=== PATIENT | male | born 1970 ===

== ENCOUNTER 2021-11-20 12:28 | Inpatient (IN) | payer MEDICARE ==
[2021-11-20 15:13] LABS: Basophils % (Auto) 0.6 % (0.0-1.8); Eosinophils % (Auto) 0.4 % (0.0-4.3); Hematocrit 34.9 % (35.5-45.6); Hemoglobin 12.3 gm/dl (11.8-15.2); Lymphocytes # (Auto) 1.2 K/mm3 (1.2-5.4); Lymphocytes % (Auto) 13.7 % (13.4-35.0); Mean Corpuscular HGB Conc 35 % (32-34); Mean Corpuscular Volume 93 fl (84-94); Monocytes # (Auto) 0.8 K/mm3 (0.0-0.8); Monocytes % (Auto) 8.9 % (0.0-7.3); Platelet Count 169 K/mm3 (140-440); Red Blood Count 3.77 M/mm3 (3.65-5.03); Red Cell Distribution Width 13.5 % (13.2-15.2)
[2021-11-20 15:29] LABS: Albumin 3.9 g/dL (3.9-5); Calcium 9.5 mg/dL (8.4-10.2)
[2021-11-21] MEDS ORDERED: SODIUM CHLORIDE 0.9% 1000 ML 1,000 ML IV ONE (01:28)
[2021-11-21] MEDS ORDERED: MAGNESIUM SULFATE 2 GM/50 ML BAG IV ONE (01:28)
--- NOTE | 2021-11-21 02:10 | Emergency Department Report ---
ED General Adult HPI - General Chief complaint: Hyperglycemia Stated complaint: ALCOHOL WITHDRAWLS/DIABETIC SYM Time Seen by Provider: 11/21/21 01:27 Source: patient Mode of arrival: Ambulatory Limitations: Language Barrier - History of Present Illness Initial comments: Patient is a 51-year-old Italian-speaking male with history of diabetes sent for evaluation by his PCP after outside labs were reportedly abnormal. His only complaint is nausea and diarrhea. He denies any chest pain or shortness of breath. Severity scale (0 -10): 0 - Related Data Allergies Allergy/AdvReac Type Severity Reaction Status Date / Time No Known Allergies Allergy Verified 11/20/21 14:04 ED Review of Systems ROS: Stated complaint: ALCOHOL WITHDRAWLS/DIABETIC SYM Other details as noted in HPI Constitutional: denies: chills, fever Respiratory: denies: cough, shortness of breath, wheezing Cardiovascular: denies: chest pain, palpitations Gastrointestinal: nausea, diarrhea Musculoskeletal: denies: back pain, joint swelling, arthralgia Skin: denies: rash, lesions Neurological: denies: headache, weakness, paresthesias Psychiatric: denies: anxiety, depression ED Past Medical Hx - Social History Smoking Status: Never Smoker ED Physical Exam - General Limitations: Language Barrier General appearance: alert, in no apparent distress - Head Head exam: Present: atraumatic, normocephalic - Respiratory Respiratory exam: Present: normal lung sounds bilaterally. Absent: respiratory distress - Cardiovascular Cardiovascular Exam: Present: regular rate, normal rhythm, normal heart sounds - GI/Abdominal GI/Abdominal exam: Present: soft. Absent: distended, tenderness - Rectal Rectal exam: Present: deferred - Extremities Exam Extremities exam: Present: normal inspection - Neurological Exam Neurological exam: Present: alert, oriented X3 - Psychiatric Psychiatric exam: Present: normal affect, normal mood - Skin Skin exam: Present: warm, dry, intact, normal color ED Course Vital Signs 11/20/21 11/21/21 11/21/21 13:48 01:37 01:45 Temperature 97.9 F Pulse Rate 74 72 72 Respiratory 18 14 15 Rate Blood Pressure 103/53 Blood Pressure 112/76 [Right] O2 Sat by Pulse 98 99 99 Oximetry 11/21/21 01:55 Temperature Pulse Rate Respiratory Rate Blood Pressure Blood Pressure [Right] O2 Sat by Pulse 100 Oximetry ED Medical Decision Making - Lab Data Result diagrams: 11/20/21 14:16 11/20/21 14:16 - Medical Decision Making Laboratory evaluation reveals serum glucose of 327. Creatinine 3.0, potassium 3.0, magnesium 0.9. Patient given IV fluids along with IV KCl and magnesium. I discussed results with patient. He denies history of kidney disease. Will admit to hospitalist for management of acute renal failure and electrolyte abnormalities. Critical care attestation.: If time is entered above; I have spent that time in minutes in the direct care of this critically ill patient, excluding procedure time. ED Disposition Clinical Impression: Acute renal failure, Hypokalemia, Hypomagnesemia, Hyperglycemia due to type 2 diabetes mellitus Disposition: ADMITTED INPATIENT Is pt being admited?: Yes Condition: Stable Instructions: Diabetes Mellitus Type 2 in Adults (ED)
--- NOTE | 2021-11-21 02:11 | XRay Report ---
CHEST 1 VIEW 11/21/2021 1:39 AM INDICATION / CLINICAL INFORMATION: Shortness of breath. COMPARISON: None available. FINDINGS: SUPPORT DEVICES: None. HEART / MEDIASTINUM: No significant abnormality. LUNGS / PLEURA: No significant pulmonary or pleural abnormality. No pneumothorax. ADDITIONAL FINDINGS: No significant additional findings. IMPRESSION: 1. No acute findings. Signer Name: Mikhail Huynh MD Signed: 11/21/2021 2:06 AM Workstation Name: [id number]
[2021-11-21] MEDS: POTASSIUM CHLORIDE 10 MEQ 10 MEQ/100 ML BAG IV SCH ×7 (02:28→16:41)
[2021-11-21] MEDS ORDERED: DEXTROSE 50% IN WATER (25GM) 50 ML SYRINGE IV PRN (02:32)
[2021-11-21] MEDS ORDERED: ACETAMINOPHEN 325 MG TAB PO PRN (02:32)
[2021-11-21] MEDS ORDERED: MAGNESIUM HYDROXIDE (MOM) ORAL LIQD UDC PO PRN (02:32)
[2021-11-21] MEDS ORDERED: MORPHINE 2 MG/1 ML INJ IV PRN (02:32)
[2021-11-21] MEDS ORDERED: MORPHINE 4 MG/1 ML INJ IV PRN (02:32)
[2021-11-21] MEDS ORDERED: ONDANSETRON 4 MG/2 ML INJ IV PRN (02:32)
--- NOTE | 2021-11-21 02:42 | History and Physical Report ---
History of Present Illness Date of examination: 11/21/21 Date of admission: 11/21/2021 Chief complaint: Diarrhea Abnormal labs. History of present illness: 51-year-old male with known history of diabetes mellitus presents to the emergency room from his primary care physician's office today for abnormal labs. Patient was said to have gone to his primary care physician's office for routine follow-up. Labs were said to be abnormal and he was encouraged to report to the emergency room for further evaluation. Patient states he is otherwise doing well except that he has been having diarrhea over the past few hours. He denies any fever or chills, no abdominal pain, no nausea or vomiting, no history of recent travel, no sick contacts, no contact with anyone with COVID-19. Work-up in the emergency room today, lab reveals hyperglycemia of 328, hypokale zahida of 3.0, hyponatremia 131, hypomagnesemia of 0.90. Patient has been commenced on IV fluid and electrolytes are being repleted. Past History Past Medical History: diabetes Past Surgical History: No surgical history Social history: alcohol abuse Family history: no significant family history Medications and Allergies Allergies Allergy/AdvReac Type Severity Reaction Status Date / Time No Known Allergies Allergy Verified 11/20/21 14:04 Active Meds: Active Medications Potassium Chloride (Kcl 10meq/100ml) 10 meq in 100 mls @ 100 mls/hr IV Q1H MAGO Stop: 11/21/21 05:59 Last Admin: 11/21/21 02:28 Dose: 100 mls/hr Review of Systems Constitutional: no fever, no chills Ears, nose, mouth and throat: no nasal congestion, no sore throat Cardiovascular: no chest pain, no palpitations Respiratory: no cough, no shortness of breath Gastrointestinal: diarrhea, no abdominal pain, no nausea, no vomiting Genitourinary Male: no dysuria, no hematuria, no flank pain, no nocturia Musculoskeletal: no neck pain, no low back pain Integumentary: no rash, no pruritis Neurological: no headaches, no confusion Psychiatric: no anxiety, no depression Endocrine: no polyphagia, no polydipsia, no polyuria, no nocturia Exam - Constitutional Vitals: Temp Pulse Resp BP Pulse Ox 97.9 F 72 15 103/53 100 11/20/21 13:48 11/21/21 01:45 11/21/21 01:45 11/21/21 01:45 11/21/21 01:55 General appearance: Present: no acute distress, well-nourished - EENT Eyes: Present: PERRL, EOM intact. Absent: scleral icterus ENT: hearing intact, clear oral mucosa, dentition normal - Neck Neck: Present: supple, normal ROM - Respiratory Respiratory effort: normal Respiratory: bilateral: CTA - Cardiovascular Rhythm: regular Heart Sounds: Present: S1 & S2. Absent: gallop, systolic murmur, diastolic murmur, rub, click - Extremities Extremities: no ischemia, pulses intact, pulses symmetrical, No edema, normal temperature, normal color, Full ROM Peripheral Pulses: within normal limits - Abdominal General gastrointestinal: Present: soft, non-tender, non-distended, normal bowel sounds. Absent: mass - Integumentary Integumentary: Present: clear, warm, dry, normal turgor. Absent: rash - Musculoskeletal Musculoskeletal: strength equal bilaterally - Psychiatric Psychiatric: appropriate mood/affect, intact judgment & insight, memory intact, cooperative - Neurologic Neurologic: CNII-XII intact, no focal deficits, moves all extremities Results - Labs CBC & Chem 7: 11/20/21 14:16 11/20/21 14:16 Labs: Abnormal lab results 11/20/21 11/20/21 11/20/21 Range/Units 14:05 14:16 14:16 Hct 34.9 L (35.5-45.6) % MCH 33 H (28-32) pg MCHC 35 H (32-34) % [place] % (Auto) 8.9 H (0.0-7.3) % Seg Neutrophils % 76.4 H (40.0-70.0) % Sodium 131 L (137-145) mmol/L Potassium 3.0 L (3.6-5.0) mmol/L Chloride 78.6 L (98-107) mmol/L Carbon Dioxide 38 H (22-30) mmol/L BUN 32 H (9-20) mg/dL Creatinine 3.0 H (0.8-1.3) mg/dL Glucose 328 H (75-100) mg/dL POC Glucose 296 H (70-105) mg/dL Magnesium (1.7-2.3) mg/dL 11/20/21 11/21/21 Range/Units 19:54 02:27 Hct (35.5-45.6) % MCH (28-32) pg MCHC (32-34) % [place] % (Auto) (0.0-7.3) % Seg Neutrophils % (40.0-70.0) % Sodium (137-145) mmol/L Potassium (3.6-5.0) mmol/L Chloride (98-107) mmol/L Carbon Dioxide (22-30) mmol/L BUN (9-20) mg/dL Creatinine (0.8-1.3) mg/dL Glucose (75-100) mg/dL POC Glucose 306 H (70-105) mg/dL Magnesium 0.90 L* (1.7-2.3) mg/dL Assessment and Plan Assessment: 1.Diarrhea 2.Hypomagnesemia 3.Hypokalemia 4.MIRI 5.Diabetes mellitus 6. History of alcohol abuse Plan: 1.Admitted to Telemetry 2.Replete electrolytes 3.Commenced on IV fluid. Monitor BUN/Creatinine 4.Placed on sliding scale insulin. Monitor accucheks. 5. We will place on CIWA protocol in view of his history of alcohol abuse DVT Prophylaxis: SQ Heparin Code Status: Full Code.
[2021-11-21] MEDS ORDERED: LORazepam 2 MG/ML VIAL IV PRN ×3 (03:07)
[2021-11-21] MEDS ORDERED: THIAMINE 100 MG TAB PO ONE (03:09)
[2021-11-21] MEDS: SODIUM CHLORIDE 0.9% 1000 ML 1,000 ML IV SCH ×2 (05:11→16:51)
[2021-11-21] MEDS: HEPARIN 5,000 UNIT/1 ML VIAL SUB-Q SCH ×4 (05:51→22:03)
--- NOTE | 2021-11-21 05:52 | Ultrasound Report ---
ULTRASOUND RENAL INDICATION / CLINICAL INFORMATION: MIRI. COMPARISON: None available. FINDINGS: RIGHT KIDNEY: Length = 10.4 cm. - Echogenicity: Normal. - Cortical Thickness: Normal. - Hydronephrosis: None. - Cyst or mass: No significant abnormality. - Stones: None seen. LEFT KIDNEY: Length = 12.5 cm. - Echogenicity: Normal. - Cortical Thickness: Normal. - Hydronephrosis: None. - Cyst or mass: No significant abnormality. - Stones: None seen. URINARY BLADDER: No significant abnormality. FREE FLUID: None. ADDITIONAL FINDINGS: Prostate is enlarged measuring 4.7 x 2.6 x 5.5 cm IMPRESSION: 1. Left perinephric fluid. Clinical correlation recommended. 2. No hydronephrosis is seen. Signer Name: Mikhail Huynh MD Signed: 11/21/2021 5:48 AM Workstation Name: [id number]
[2021-11-21] MEDS: INSULIN LISPRO 100 UNIT/ML SUB-Q SCH ×4 (08:30→22:03)
--- NOTE | 2021-11-21 10:30 | Progress Note ---
Assessment and Plan Assessment and plan: 51-year-old male with known history of diabetes mellitus presents to the emergency room from his primary care physician's office today for abnormal labs. Patient was said to have gone to his primary care physician's office for routine follow-up. Labs were said to be abnormal and he was encouraged to report to the emergency room for further evaluation. Patient states he is otherwise doing well except that he has been having diarrhea over the past few hours [employer]. Work-up in the emergency room revealed hyperglycemia of 328, hypokalemia of 3.0, hyponatremia 131, hypomagnesemia of 0.90 and a creatinine of 3.0. The patient was admitted with diagnoses below: Acute kidney injury Diarrhea Hypokalemia Hypomagnesia Diabetes mellitus type 2 History of alcohol abuse 11/21/2021. I suspect acute kidney injury is secondary to volume depletion/vasomotor nephropathy. We will continue with IV fluid hydration and monitor closely. We do not have a baseline creatinine to compare. Nephrology consultation pending. Continue CIWA protocol for alcohol abuse. Check stool studies and C. difficile for diarrhea. Continue to replete electrolytes. Check renal ultrasound History Interval history: No new issues overnight Hospitalist Physical - Constitutional Vitals: Temp Pulse Resp BP Pulse Ox 98.3 F 81 15 134/78 95 11/21/21 07:30 11/21/21 07:30 11/21/21 04:10 11/21/21 07:30 11/21/21 07:30 General appearance: Present: no acute distress, well-nourished - EENT Eyes: Present: PERRL, EOM intact ENT: hearing intact, clear oral mucosa, dentition normal - Neck Neck: Present: supple, normal ROM - Respiratory Respiratory effort: normal Respiratory: bilateral: CTA - Cardiovascular Rhythm: regular Heart Sounds: Present: S1 & S2. Absent: gallop, rub - Extremities Extremities: no ischemia, No edema, Full ROM - Abdominal General gastrointestinal: soft, non-tender, non-distended, normal bowel sounds - Integumentary Integumentary: Present: clear, warm, dry - Neurologic Neurologic: CNII-XII intact, moves all extremities Results - Labs CBC & Chem 7: 11/20/21 14:16 11/20/21 14:16 Labs: Laboratory Last Values WBC 8.7 K/mm3 (4.5-11.0) 11/20/21 14:16 RBC 3.77 M/mm3 (3.65-5.03) 11/20/21 14:16 Hgb 12.3 gm/dl (11.8-15.2) 11/20/21 14:16 Hct 34.9 % (35.5-45.6) L 11/20/21 14:16 MCV 93 fl (84-94) 11/20/21 14:16 MCH 33 pg (28-32) H 11/20/21 14:16 MCHC 35 % (32-34) H 11/20/21 14:16 RDW 13.5 % (13.2-15.2) 11/20/21 14:16 Plt Count 169 K/mm3 (140-440) 11/20/21 14:16 Lymph % (Auto) 13.7 % (13.4-35.0) 11/20/21 14:16 [place] % (Auto) 8.9 % (0.0-7.3) H 11/20/21 14:16 Eos % (Auto) 0.4 % (0.0-4.3) 11/20/21 14:16 Baso % (Auto) 0.6 % (0.0-1.8) 11/20/21 14:16 Lymph # (Auto) 1.2 K/mm3 (1.2-5.4) 11/20/21 14:16 [place] # (Auto) 0.8 K/mm3 (0.0-0.8) 11/20/21 14:16 Eos # (Auto) 0.0 K/mm3 (0.0-0.4) 11/20/21 14:16 Baso # (Auto) 0.0 K/mm3 (0.0-0.1) 11/20/21 14:16 Seg Neutrophils % 76.4 % (40.0-70.0) H 11/20/21 14:16 Seg Neutrophils # 6.7 K/mm3 (1.8-7.7) 11/20/21 14:16 Sodium 131 mmol/L (137-145) L 11/20/21 14:16 Potassium 3.0 mmol/L (3.6-5.0) L 11/20/21 14:16 Chloride 78.6 mmol/L (98-107) L 11/20/21 14:16 Carbon Dioxide 38 mmol/L (22-30) H 11/20/21 14:16 Anion Gap 17 mmol/L 11/20/21 14:16 BUN 32 mg/dL (9-20) H 11/20/21 14:16 Creatinine 3.0 mg/dL (0.8-1.3) H 11/20/21 14:16 Estimated GFR 22 ml/min 11/20/21 14:16 BUN/Creatinine Ratio 11 % 11/20/21 14:16 Glucose 328 mg/dL (75-100) H 11/20/21 14:16 POC Glucose 306 mg/dL (70-105) H 11/21/21 02:27 Ketones Quantitative Negative (Negative) 11/20/21 14:40 Calcium 9.5 mg/dL (8.4-10.2) 11/20/21 14:16 Magnesium 0.90 mg/dL (1.7-2.3) L* 11/20/21 19:54 Total Bilirubin 1.00 mg/dL (0.1-1.2) 11/20/21 14:16 AST 21 units/L (5-40) 11/20/21 14:16 ALT 20 units/L (7-56) 11/20/21 14:16 Alkaline Phosphatase 84 units/L (35-129) 11/20/21 14:16 Total Protein 6.6 g/dL (6.3-8.2) 11/20/21 14:16 Albumin 3.9 g/dL (3.9-5) 11/20/21 14:16 Albumin/Globulin Ratio 1.4 % 11/20/21 14:16 Andujar/IV: Voiding Method Urinal Active Medications - Current Medications Current Medications: Generic Name Dose Route Start Last Admin Trade Name Freq PRN Reason Stop Dose Admin Acetaminophen 650 mg 11/21/21 02:32 Acetaminophen 325 Mg Tab PO Q4H PRN Pain MILD(1-3)/Fever >100.5/REYNOSO Dextrose 50 ml 11/21/21 02:32 Dextrose 50% In Water (25gm) 50 Ml Syringe IV Q30MIN PRN Hypoglycemia Protocol Folic Acid 1 mg 11/21/21 10:00 Folic Acid 1 Mg Tab PO QDAY MAGO Heparin Sodium (Porcine) 5,000 unit 11/21/21 06:00 11/21/21 05:51 Heparin 5,000 Unit/1 Ml Vial SUB-Q 5,000 unit Q8HR MAGO Administration Sodium Chloride 1,000 mls @ 125 mls/hr 11/21/21 02:45 11/21/21 05:11 Nacl 0.9% 1000 Ml IV 125 mls/hr DIRECT MAGO Administration Insulin Human Lispro 0 unit 11/21/21 07:30 11/21/21 08:30 Insulin Lispro 100 Unit/Ml SUB-Q 4 unit ACHS MAGO Administration Protocol Lorazepam 2 mg 11/21/21 03:07 Lorazepam 2 Mg/Ml Vial IV Q1H PRN CIWA-Ar 8-15 Lorazepam 4 mg 11/21/21 03:07 Lorazepam 2 Mg/Ml Vial IV Q1H PRN CIWA-Ar 16-25 Lorazepam 4 mg 11/21/21 03:07 Lorazepam 2 Mg/Ml Vial IV Q15MIN PRN CIWA-Ar >25 Magnesium Hydroxide 30 ml 11/21/21 02:32 Magnesium Hydroxide (Mom) Oral Liqd Udc PO Q4H PRN Constipation Morphine Sulfate 2 mg 11/21/21 02:32 Morphine 2 Mg/1 Ml Inj IV Q4H PRN Pain, Moderate (4-6) Morphine Sulfate 4 mg 11/21/21 02:32 Morphine 4 Mg/1 Ml Inj IV Q4H PRN Pain , Severe (7-10) Ondansetron HCl 4 mg 11/21/21 02:32 Ondansetron 4 Mg/2 Ml Inj IV Q8H PRN Nausea And Vomiting Sodium Chloride 10 ml 11/21/21 10:00 Sodium Chloride 0.9% 10 Ml Flush Syringe IV BID MAGO Sodium Chloride 10 ml 11/21/21 02:32 Sodium Chloride 0.9% 10 Ml Flush Syringe IV PRN PRN LINE FLUSH
[2021-11-21] MEDS: FOLIC ACID 1 MG TAB PO SCH (10:40)
--- NOTE | 2021-11-21 13:19 | Electrocardiograph Report ---
[facility] Test Date: 2021-11-21 Test Time: 03:41:24 Pat Name: AMADOU RUDD Department: Room: A473 1 Gender: M Bench Worker Helper: FREDY : 1970 Requested By: THU GUTHRIE Order Number: [id number] Reading MD: Robby Hernadez Measurements Intervals [place] Rate: 74 P: 34 CO: 191 QRS: 57 QRSD: 109 T: 4 QT: 411 QTc: 456 Interpretive Statements Sinus rhythm Nonspecific ST changes No previous ECG available for comparison Electronically Signed On 11-21-2021 13:19:02 EDT by Robby Hernadez
--- NOTE | 2021-11-21 19:25 | Consultation ---
History of Present Illness - Reason for Consult Consult date: 11/21/21 acute renal failure - History of Present Illness This is a 51-year-old man with history of diabetes who presented to the [facility] department upon the advise of his PCP for abnormal lab work. In the emergency department he was noted to have hyperglycemia, hypokalemia and hyponatremia. He was subsequently admitted for further workup and nephrology was consulted for acute kidney injury. Past History Past Medical History: diabetes Past Surgical History: No surgical history Social history: alcohol abuse Family history: no significant family history Medications and Allergies Allergies Allergy/AdvReac Type Severity Reaction Status Date / Time No Known Allergies Allergy Verified 11/21/21 11:04 Home Medications Medication Instructions Recorded Confirmed Last Taken Type AtorvaSTATin [Lipitor] 40 mg PO QHS 11/21/21 11/21/21 Unknown History Chlorthalidone 50 mg PO QDAY 11/21/21 11/21/21 Unknown History FLUoxetine [PROzac] 20 mg PO QDAY 11/21/21 11/21/21 Unknown History Famotidine [Pepcid] 40 mg PO QHS 11/21/21 11/21/21 Unknown History Latanoprost 0.005% [Xalatan 0.005%] 1 drop OU QHS 11/21/21 11/21/21 Unknown History Metformin HCl [metFORMIN] 1,000 mg PO BID 11/21/21 11/21/21 Unknown History Metoprolol [Lopressor] 25 mg PO QDAY 11/21/21 11/21/21 Unknown History Sitagliptin Phosphate [Januvia] 100 mg PO ONCE 11/21/21 11/21/21 Unknown History Timolol 0.5% [Timoptic] 1 drops OU BID 11/21/21 11/21/21 Unknown History glipiZIDE [Glucotrol] 5 mg PO QDAY 11/21/21 11/21/21 Unknown History lisinopriL [Zestril TAB] 40 mg PO QDAY 11/21/21 11/21/21 Unknown History Active Meds: Active Medications Acetaminophen (Acetaminophen 325 Mg Tab) 650 mg PO Q4H PRN PRN Reason: Pain MILD(1-3)/Fever >100.5/REYNOSO Dextrose (Dextrose 50% In Water (25gm) 50 Ml Syringe) 50 ml IV Q30MIN PRN; Protocol PRN Reason: Hypoglycemia Folic Acid (Folic Acid 1 Mg Tab) 1 mg PO QDAY REPLACED BY [facility] Last Admin: 11/21/21 10:40 Dose: 1 mg Heparin Sodium (Porcine) (Heparin 5,000 Unit/1 Ml Vial) 5,000 unit SUB-Q Q8HR REPLACED BY [facility] Last Admin: 11/21/21 15:00 Dose: Not Given Sodium Chloride (Nacl 0.9% 1000 Ml) 1,000 mls @ 125 mls/hr IV DIRECT REPLACED BY [facility] Last Admin: 11/21/21 16:51 Dose: 125 mls/hr Insulin Human Lispro (Insulin Lispro 100 Unit/Ml) 0 unit SUB-Q ACHS REPLACED BY [facility]; Protocol Last Admin: 11/21/21 16:50 Dose: 3 unit Lorazepam (Lorazepam 2 Mg/Ml Vial) 2 mg IV Q1H PRN PRN Reason: CIWA-Ar 8-15 Lorazepam (Lorazepam 2 Mg/Ml Vial) 4 mg IV Q1H PRN PRN Reason: CIWA-Ar 16-25 Lorazepam (Lorazepam 2 Mg/Ml Vial) 4 mg IV Q15MIN PRN PRN Reason: CIWA-Ar >25 Magnesium Hydroxide (Magnesium Hydroxide (Mom) Oral Liqd Udc) 30 ml PO Q4H PRN PRN Reason: Constipation Morphine Sulfate (Morphine 2 Mg/1 Ml Inj) 2 mg IV Q4H PRN PRN Reason: Pain, Moderate (4-6) Morphine Sulfate (Morphine 4 Mg/1 Ml Inj) 4 mg IV Q4H PRN PRN Reason: Pain , Severe (7-10) Ondansetron HCl (Ondansetron 4 Mg/2 Ml Inj) 4 mg IV Q8H PRN PRN Reason: Nausea And Vomiting Sodium Chloride (Sodium Chloride 0.9% 10 Ml Flush Syringe) 10 ml IV BID REPLACED BY [facility] Last Admin: 11/21/21 12:40 Dose: 10 ml Sodium Chloride (Sodium Chloride 0.9% 10 Ml Flush Syringe) 10 ml IV PRN PRN PRN Reason: LINE FLUSH Review of Systems All systems: negative Constitutional: malaise Exam - Vital Signs Vital signs: Vital Signs Temp Pulse Resp BP Pulse Ox 97.9 F 74 18 112/76 98 11/20/21 13:48 11/20/21 13:48 11/20/21 13:48 11/20/21 13:48 11/20/21 13:48 - Physical Exam Narrative exam: General: No acute distress HEENT: Oral mucosa moist Neck: Supple, no JVD Chest: Clear to auscultation bilaterally Heart: RRR, S1 and S2, no pericardial rub Abdomen: Soft, nontender, no renal bruit Extremity: No peripheral cyanosis, edema Neurological: Alert, awake, no asterixis Dermatology: No skin rash Psych: No agitation Musculoskeletal: No joint effusion Results - Lab Results 11/20/21 14:16 11/20/21 14:16 Most recent lab results Calcium 9.5 mg/dL (8.4-10.2) 11/20/21 14:16 Magnesium 0.90 mg/dL (1.7-2.3) L* 11/20/21 19:54 Assessment and Plan Acute kidney injury. Renal u/s unremarkable. Hypokalemia Hyponatremia Hypochloremia Hypomagnesemia Hyperglycemia Replete potassium Replete magnesium Check urinalysis, UPCR Continue IVF Renally dose medications Avoid nephrotoxins Renal diet Keep glucose less than 180 mg/dL
[2021-11-22] MEDS: SODIUM CHLORIDE 0.9% 1000 ML 1,000 ML IV SCH (00:45)
[2021-11-22 04:18] LABS: Basophils % (Auto) 0.6 % (0.0-1.8); Eosinophils # (Auto) 0.1 K/mm3 (0.0-0.4); Hematocrit 30.1 % (35.5-45.6); Hemoglobin 10.6 gm/dl (11.8-15.2); Lymphocytes # (Auto) 1.2 K/mm3 (1.2-5.4); Lymphocytes % (Auto) 25.5 % (13.4-35.0); Mean Corpuscular HGB Conc 35 % (32-34); Mean Corpuscular Volume 93 fl (84-94); Monocytes # (Auto) 0.6 K/mm3 (0.0-0.8); Monocytes % (Auto) 12.6 % (0.0-7.3); Platelet Count 123 K/mm3 (140-440); Red Blood Count 3.24 M/mm3 (3.65-5.03); Red Cell Distribution Width 13.4 % (13.2-15.2)
[2021-11-22 05:01] LABS: Calcium 8.2 mg/dL (8.4-10.2)
[2021-11-22] MEDS: HEPARIN 5,000 UNIT/1 ML VIAL SUB-Q SCH ×3 (05:43→22:32)
[2021-11-22 06:40] LABS: Color,Urine Colorless (Yellow)
[2021-11-22 06:49] LABS: Creatinine,Urine 53.9 mg/dL (0.1-20.0); Protein/Creatinine Ratio,Urine 0.17
[2021-11-22 06:51] LABS: Bacteria,Urine 1+ /HPF (Negative)
[2021-11-22] MEDS: INSULIN LISPRO 100 UNIT/ML SUB-Q SCH ×4 (08:37→22:00)
[2021-11-22] MEDS: FOLIC ACID 1 MG TAB PO SCH (10:54)
--- NOTE | 2021-11-22 13:14 | Progress Note ---
Assessment and Plan Acute kidney injury. Renal u/s unremarkable. Hypokalemia Hyponatremia Hypochloremia Hypomagnesemia Hyperglycemia Replete potassium to goal S/p magnesium repletion Continue IVF Renally dose medications Avoid nephrotoxins Renal diet Keep glucose less than 180 mg/dL Subjective Date of service: 11/22/21 Principal diagnosis: MIRI Interval history: Resting in bed. Family at bedside. Notes increased urine output. Objective - Exam Narrative Exam: General: No acute distress HEENT: Oral mucosa moist Neck: Supple, no JVD Chest: Clear to auscultation bilaterally Heart: RRR, S1 and S2, no pericardial rub Abdomen: Soft, nontender, no renal bruit Extremity: No peripheral cyanosis, edema Neurological: Alert, awake, no asterixis Dermatology: No skin rash Psych: No agitation Musculoskeletal: No joint effusion - Vital Signs Vital signs: Vital Signs - 12hr 11/22/21 11/22/21 03:54 08:26 Temperature 97.7 F 88.3 F L Pulse Rate 68 66 Respiratory 18 Rate Blood Pressure 139/77 160/86 O2 Sat by Pulse 98 99 Oximetry - Lab 11/22/21 03:56 11/22/21 04:00 Most recent lab results Calcium 8.2 mg/dL (8.4-10.2) L 11/22/21 04:00 Magnesium 1.30 mg/dL (1.7-2.3) L 11/22/21 04:00 Urine Creatinine 53.9 mg/dL (0.1-20.0) H 11/22/21 05:48 Urine Total Protein 9 mg/dL (5-11.8) 11/22/21 05:48 Medications & Allergies - Medications Allergies/Adverse Reactions: Allergies No Known Allergies Allergy (Verified 11/21/21 11:04) Home Medications: Home Medications Medication Instructions Recorded Confirmed Last Taken Type AtorvaSTATin [Lipitor] 40 mg PO QHS 11/21/21 11/21/21 Unknown History Chlorthalidone 50 mg PO QDAY 11/21/21 11/21/21 Unknown History FLUoxetine [PROzac] 20 mg PO QDAY 11/21/21 11/21/21 Unknown History Famotidine [Pepcid] 40 mg PO QHS 11/21/21 11/21/21 Unknown History Latanoprost 0.005% [Xalatan 0.005%] 1 drop OU QHS 11/21/21 11/21/21 Unknown History Metformin HCl [metFORMIN] 1,000 mg PO BID 11/21/21 11/21/21 Unknown History Metoprolol [Lopressor] 25 mg PO QDAY 11/21/21 11/21/21 Unknown History Sitagliptin Phosphate [Januvia] 100 mg PO QDAY 11/21/21 11/22/21 Unknown History Timolol 0.5% [Timoptic] 1 drops OU BID 11/21/21 11/21/21 Unknown History glipiZIDE [Glucotrol] 5 mg PO QDAY 11/21/21 11/21/21 Unknown History lisinopriL [Zestril TAB] 40 mg PO QDAY 11/21/21 11/21/21 Unknown History Active Medications: Generic Name Dose Route Start Last Admin Trade Name Freq PRN Reason Stop Dose Admin Acetaminophen 650 mg 11/21/21 02:32 Acetaminophen 325 Mg Tab PO Q4H PRN Pain MILD(1-3)/Fever >100.5/REYNOSO Dextrose 50 ml 11/21/21 02:32 Dextrose 50% In Water (25gm) 50 Ml Syringe IV Q30MIN PRN Hypoglycemia Protocol Folic Acid 1 mg 11/21/21 10:00 11/22/21 10:54 Folic Acid 1 Mg Tab PO 1 mg QDAY MAGO Administration Heparin Sodium (Porcine) 5,000 unit 11/21/21 06:00 11/22/21 05:43 Heparin 5,000 Unit/1 Ml Vial SUB-Q 5,000 unit Q8HR MAGO Administration Sodium Chloride 1,000 mls @ 125 mls/hr 11/21/21 02:45 11/22/21 00:45 Nacl 0.9% 1000 Ml IV 125 mls/hr DIRECT MAGO Administration Insulin Human Lispro 0 unit 11/21/21 07:30 11/22/21 08:37 Insulin Lispro 100 Unit/Ml SUB-Q 3 unit ACHS MAGO Administration Protocol Lorazepam 2 mg 11/21/21 03:07 Lorazepam 2 Mg/Ml Vial IV Q1H PRN CIWA-Ar 8-15 Lorazepam 4 mg 11/21/21 03:07 Lorazepam 2 Mg/Ml Vial IV Q1H PRN CIWA-Ar 16-25 Lorazepam 4 mg 11/21/21 03:07 Lorazepam 2 Mg/Ml Vial IV Q15MIN PRN CIWA-Ar >25 Magnesium Hydroxide 30 ml 11/21/21 02:32 Magnesium Hydroxide (Mom) Oral Liqd Udc PO Q4H PRN Constipation Morphine Sulfate 2 mg 11/21/21 02:32 Morphine 2 Mg/1 Ml Inj IV Q4H PRN Pain, Moderate (4-6) Morphine Sulfate 4 mg 11/21/21 02:32 Morphine 4 Mg/1 Ml Inj IV Q4H PRN Pain , Severe (7-10) Ondansetron HCl 4 mg 11/21/21 02:32 Ondansetron 4 Mg/2 Ml Inj IV Q8H PRN Nausea And Vomiting Sodium Chloride 10 ml 11/21/21 10:00 11/22/21 10:55 Sodium Chloride 0.9% 10 Ml Flush Syringe IV Not Given BID MAGO Sodium Chloride 10 ml 11/21/21 02:32 Sodium Chloride 0.9% 10 Ml Flush Syringe IV PRN PRN LINE FLUSH
--- NOTE | 2021-11-22 13:31 | Progress Note ---
Assessment and Plan Assessment and plan: 51-year-old male with known history of diabetes mellitus presents to the emergency room from his primary care physician's office today for abnormal labs. Patient was said to have gone to his primary care physician's office for routine follow-up. Labs were said to be abnormal and he was encouraged to report to the emergency room for further evaluation. Patient states he is otherwise doing well except that he has been having diarrhea over the past few hours MANAGER CALL. Work-up in the emergency room revealed hyperglycemia of 328, hypokalemia of 3.0, hyponatremia 131, hypomagnesemia of 0.90 and a creatinine of 3.0. The patient was admitted with diagnoses below: Acute kidney injury Diarrhea Hypokalemia Hypomagnesia Diabetes mellitus type 2 History of alcohol abuse 11/21/2021. I suspect acute kidney injury is secondary to volume depletion/vasomotor nephropathy. We will continue with IV fluid hydration and monitor closely. We do not have a baseline creatinine to compare. Nephrology consultation pending. Continue [place] protocol for alcohol abuse. Check stool studies and C. difficile for diarrhea. Continue to replete electrolytes. Check renal ultrasound 11/22/2021. Renal ultrasound is unremarkable. Continue to replete potassium and magnesium as needed. Continue IV fluid hydration. Etiology likely secondary to vasomotor nephropathy. Anticipate patient will likely be able to discharge in a.m. History Interval history: No new issues overnight Hospitalist Physical - Constitutional Vitals: Temp Pulse Resp BP Pulse Ox 88.3 F L 66 18 160/86 99 11/22/21 08:26 11/22/21 08:26 11/22/21 03:54 11/22/21 08:26 11/22/21 08:26 General appearance: Present: no acute distress, well-nourished - EENT Eyes: Present: PERRL, EOM intact ENT: hearing intact, clear oral mucosa, dentition normal - Neck Neck: Present: supple, normal ROM - Respiratory Respiratory effort: normal Respiratory: bilateral: CTA - Cardiovascular Rhythm: regular Heart Sounds: Present: S1 & S2. Absent: gallop, rub - Extremities Extremities: no ischemia, No edema, Full ROM - Abdominal General gastrointestinal: soft, non-tender, non-distended, normal bowel sounds - Integumentary Integumentary: Present: clear, warm, dry - Neurologic Neurologic: CNII-XII intact, moves all extremities Results - Labs CBC & Chem 7: 11/22/21 03:56 11/22/21 04:00 Labs: Laboratory Last Values WBC 4.7 K/mm3 (4.5-11.0) 11/22/21 03:56 RBC 3.24 M/mm3 (3.65-5.03) L 11/22/21 03:56 Hgb 10.6 gm/dl (11.8-15.2) L 11/22/21 03:56 Hct 30.1 % (35.5-45.6) L 11/22/21 03:56 MCV 93 fl (84-94) 11/22/21 03:56 MCH 33 pg (28-32) H 11/22/21 03:56 MCHC 35 % (32-34) H 11/22/21 03:56 RDW 13.4 % (13.2-15.2) 11/22/21 03:56 Plt Count 123 K/mm3 (140-440) L 11/22/21 03:56 Lymph % (Auto) 25.5 % (13.4-35.0) 11/22/21 03:56 [place] % (Auto) 12.6 % (0.0-7.3) H 11/22/21 03:56 Eos % (Auto) 2.0 % (0.0-4.3) 11/22/21 03:56 Baso % (Auto) 0.6 % (0.0-1.8) 11/22/21 03:56 Lymph # (Auto) 1.2 K/mm3 (1.2-5.4) 11/22/21 03:56 Wayne # (Auto) 0.6 K/mm3 (0.0-0.8) 11/22/21 03:56 Eos # (Auto) 0.1 K/mm3 (0.0-0.4) 11/22/21 03:56 Baso # (Auto) 0.0 K/mm3 (0.0-0.1) 11/22/21 03:56 Seg Neutrophils % 59.3 % (40.0-70.0) 11/22/21 03:56 Seg Neutrophils # 2.8 K/mm3 (1.8-7.7) 11/22/21 03:56 Sodium 137 mmol/L (137-145) 11/22/21 04:00 Potassium 3.1 mmol/L (3.6-5.0) L 11/22/21 04:00 Chloride 93.2 mmol/L (98-107) L 11/22/21 04:00 Carbon Dioxide 36 mmol/L (22-30) H 11/22/21 04:00 Anion Gap 11 mmol/L 11/22/21 04:00 BUN 26 mg/dL (9-20) H 11/22/21 04:00 Creatinine 1.6 mg/dL (0.8-1.3) H 11/22/21 04:00 Estimated GFR 46 ml/min 11/22/21 04:00 BUN/Creatinine Ratio 16 % 11/22/21 04:00 Glucose 258 mg/dL (75-100) H 11/22/21 04:00 POC Glucose 226 mg/dL (70-105) H 11/22/21 12:54 Ketones Quantitative Negative (Negative) 11/20/21 14:40 Calcium 8.2 mg/dL (8.4-10.2) L 11/22/21 04:00 Magnesium 1.30 mg/dL (1.7-2.3) L 11/22/21 04:00 Total Bilirubin 1.00 mg/dL (0.1-1.2) 11/20/21 14:16 AST 21 units/L (5-40) 11/20/21 14:16 ALT 20 units/L (7-56) 11/20/21 14:16 Alkaline Phosphatase 84 units/L (35-129) 11/20/21 14:16 Total Creatine Kinase 33 units/L (55-170) L 11/21/21 22:59 Total Protein 6.6 g/dL (6.3-8.2) 11/20/21 14:16 Albumin 3.9 g/dL (3.9-5) 11/20/21 14:16 Albumin/Globulin Ratio 1.4 % 11/20/21 14:16 Urine Color Colorless (Yellow) 11/22/21 05:55 Urine Turbidity Clear (Clear) 11/22/21 05:55 Specific [place] (Man) 1.005 (1.003-1.030) 11/22/21 05:55 Ur Protein (Man) Negative mg/dL (Negative) 11/22/21 05:55 Ur Ketones (Man) Negative (Negative) 11/22/21 05:55 Urine Bilirubin (Man) Negative (Negative) 11/22/21 05:55 Urine WBC (Auto) 2.0 /HPF (0.0-6.0) 11/22/21 05:55 Urine RBC (Auto) 1.0 /HPF (0.0-6.0) 11/22/21 05:55 Urine Bacteria (Auto) 1+ /HPF (Negative) 11/22/21 05:55 Urine RBC (Manual) Negative (Negative) 11/22/21 05:55 Urine Creatinine 53.9 mg/dL (0.1-20.0) H 11/22/21 05:48 Protein/Creatinin Ratio 0.17 11/22/21 05:48 Urine Total Protein 9 mg/dL (5-11.8) 11/22/21 05:48 Andujar/IV: Voiding Method Urinal Active Medications - Current Medications Current Medications: Generic Name Dose Route Start Last Admin Trade Name Freq PRN Reason Stop Dose Admin Acetaminophen 650 mg 11/21/21 02:32 Acetaminophen 325 Mg Tab PO Q4H PRN Pain MILD(1-3)/Fever >100.5/REYNOSO Dextrose 50 ml 11/21/21 02:32 Dextrose 50% In Water (25gm) 50 Ml Syringe IV Q30MIN PRN Hypoglycemia Protocol Folic Acid 1 mg 11/21/21 10:00 11/22/21 10:54 Folic Acid 1 Mg Tab PO 1 mg QDAY MAGO Administration Heparin Sodium (Porcine) 5,000 unit 11/21/21 06:00 11/22/21 05:43 Heparin 5,000 Unit/1 Ml Vial SUB-Q 5,000 unit Q8HR MAGO Administration Sodium Chloride 1,000 mls @ 125 mls/hr 11/21/21 02:45 11/22/21 00:45 Nacl 0.9% 1000 Ml IV 125 mls/hr DIRECT MAGO Administration Insulin Human Lispro 0 unit 11/21/21 07:30 11/22/21 08:37 Insulin Lispro 100 Unit/Ml SUB-Q 3 unit ACHS MAGO Administration Protocol Lorazepam 2 mg 11/21/21 03:07 Lorazepam 2 Mg/Ml Vial IV Q1H PRN CIWA-Ar 8-15 Lorazepam 4 mg 11/21/21 03:07 Lorazepam 2 Mg/Ml Vial IV Q1H PRN CIWA-Ar 16-25 Lorazepam 4 mg 11/21/21 03:07 Lorazepam 2 Mg/Ml Vial IV Q15MIN PRN CIWA-Ar >25 Magnesium Hydroxide 30 ml 11/21/21 02:32 Magnesium Hydroxide (Mom) Oral Liqd Udc PO Q4H PRN Constipation Morphine Sulfate 2 mg 11/21/21 02:32 Morphine 2 Mg/1 Ml Inj IV Q4H PRN Pain, Moderate (4-6) Morphine Sulfate 4 mg 11/21/21 02:32 Morphine 4 Mg/1 Ml Inj IV Q4H PRN Pain , Severe (7-10) Ondansetron HCl 4 mg 11/21/21 02:32 Ondansetron 4 Mg/2 Ml Inj IV Q8H PRN Nausea And Vomiting Sodium Chloride 10 ml 11/21/21 10:00 11/22/21 10:55 Sodium Chloride 0.9% 10 Ml Flush Syringe IV Not Given BID MAGO Sodium Chloride 10 ml 11/21/21 02:32 Sodium Chloride 0.9% 10 Ml Flush Syringe IV PRN PRN LINE FLUSH Nutrition/Malnutrition Assess - Dietary Evaluation Nutrition/Malnutrition Findings: Nutrition Notes Start: 11/21/21 16:31 Freq: Status: Active Protocol: Document 11/21/21 16:31 LAUREN (Rec: 11/21/21 16:40 LAUREN [id number]) Nutrition Notes Need for Assessment generated from: MD Order,Education Initial or Follow up Brief Note Current Diagnosis Acute Kidney Injury,Diabetes Other Pertinent Diagnosis Hyperglycemia, Electrolyte Imbalance, Diarrhea, EtOH Abuse. Current Diet Cardiac/Consistent Carbohydrates Diet (since B ). Height 5 ft 11 in Weight 90.718 kg [place] Body Weight (kg) 78.18 BMI 27.8 Intake Prior to Admission Good Weight change and time frame Pt denies having loss body weight MANAGER CALL. Weight Status Overweight Subjective/Other Information RD consult for nutrition education assessment. Pt's PO intake of meals has been Good and well tolerated, according to ADL notes. Pt is on Room Air, O2 saturation @ 96%, according to Physical Assessment history notes. CIWA protocol is ongoing, according to Progress notes. Pt still in critical condition , not a candidate for Nutrition Education at the time, will assess feasibility on F/U. Percent of energy/protein needs met: Prescribed Cardiac/Consistent Carbohydrates Diet provides for energy/protein needs (1, 977 Kcal/86 g) during LOS. Nutrition Intervention Follow-Up By: 11/28/21 Additional Comments Nutrition education will be provided at F/U, if feasible. Continue monitoring food tolerance, %PO intake of meals , and BM.
[2021-11-22] MEDS ORDERED: POTASSIUM CHLORIDE ER 20 MEQ TAB PO ONE (20:16)
[2021-11-22] MEDS ORDERED: NON-FORMULARY EACH (Famotidine [Pepcid] 40 MG Tablet) PO SCH (22:00)
[2021-11-22] MEDS ORDERED: LATANOPROST 0.005% OPHTH SOLN 2.5 ML OU SCH (22:00)
[2021-11-22] MEDS ORDERED: FAMOTIDINE 20 MG TAB PO SCH (22:00)
[2021-11-22] MEDS: TIMOLOL 0.5% OPHTH SOLN 5 ML OU SCH (22:37)
[2021-11-23 05:18] LABS: Eosinophils # (Auto) 0.2 K/mm3 (0.0-0.4); Eosinophils % (Auto) 4.2 % (0.0-4.3); Hematocrit 27.9 % (35.5-45.6); Hemoglobin 9.9 gm/dl (11.8-15.2); Lymphocytes # (Auto) 1.1 K/mm3 (1.2-5.4); Lymphocytes % (Auto) 24.4 % (13.4-35.0); Mean Corpuscular HGB Conc 36 % (32-34); Mean Corpuscular Volume 93 fl (84-94); Monocytes # (Auto) 0.7 K/mm3 (0.0-0.8); Monocytes % (Auto) 15.1 % (0.0-7.3); Platelet Count 122 K/mm3 (140-440); Red Cell Distribution Width 13.7 % (13.2-15.2)
[2021-11-23 05:36] LABS: BUN/Creatinine Ratio 16; Blood Urea Nitrogen 18 mg/dL (9-20); Calcium 7.4 mg/dL (8.4-10.2); Hemolysis Index 4
[2021-11-23] MEDS: HEPARIN 5,000 UNIT/1 ML VIAL SUB-Q SCH (06:25)
[2021-11-23] MEDS: SODIUM CHLORIDE 0.9% 1000 ML 1,000 ML IV SCH (06:25)
[2021-11-23] MEDS ORDERED: glipiZIDE 5 MG TAB PO SCH (08:00)
--- NOTE | 2021-11-23 09:00 | Discharge Summary ---
Providers - Providers Date of Admission: 11/21/21 02:32 Date of discharge: 11/23/21 Attending physician: MINH DUNN 11/21/21 02:32 Consult to Dietitian/Nutrition [CONS] Routine Physician Instructions: Reason For Exam: Reason for Consult: Diet education Consult to Physician [CONS] Routine Comment: Consulting Provider: NELSON ARIAS Physician Instructions: Reason For Exam: MIRI Primary care physician: GUILLERMO MALDONADO Hospitalization Reason for admission: MIRI Condition: Stable Hospital course: 51-year-old male with known history of diabetes mellitus presents to the emergency room from his primary care physician's office today for abnormal labs. Patient was said to have gone to his primary care physician's office for routine follow-up. Labs were said to be abnormal and he was encouraged to report to the emergency room for further evaluation. 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 Work-up in the emergency room revealed hyperglycemia of 328, hypokalemia of 3.0, hyponatremia 131, hypomagnesemia of 0.90 and a creatinine of 3.0. The patient was admitted with diagnoses below: Acute kidney injury secondary to vasomotor nephropathy/dehydration Diarrhea Hypokalemia Hypomagnesia Diabetes mellitus type 2 History of alcohol abuse 11/21/2021. I suspect acute kidney injury is secondary to volume depletion/vasomotor nephropathy. We will continue with IV fluid hydration and monitor closely. We do not have a baseline creatinine to compare. Nephrology consultation pending. Continue [facility] protocol for alcohol abuse. Check stool studies and C. difficile for diarrhea. Continue to replete electrolytes. Check renal ultrasound 11/22/2021. Renal ultrasound is unremarkable. Continue to replete potassium and magnesium as needed. Continue IV fluid hydration. Etiology likely secondary to vasomotor nephropathy. Anticipate patient will likely be able to discharge in a.m. 11/23/2021. Electrolyte derangements have resolved. Creatinine normalized at 1.1. Patient is felt to have received maximal hospital benefit and will be discharged home. Dedicated discharge time 32 minutes Disposition: 30 STILL A PATIENT Final Discharge Diagnosis (Prints w/discharge instructions): Acute kidney injury secondary to vasomotor nephropathy/dehydration. Diarrhea. Hypokalemia. Hypomagnesia. Diabetes mellitus type 2. History of alcohol abuse Core Measure Documentation - Palliative Care Palliative Care/ Comfort Measures: Not Applicable - Core Measures Any of the following diagnoses?: none Exam - Constitutional Vitals: Temp Pulse Resp BP Pulse Ox 97.5 F L 64 16 153/85 99 11/23/21 05:27 11/23/21 05:27 11/23/21 05:27 11/23/21 05:27 11/23/21 05:27 General appearance: Present: no acute distress, well-nourished - EENT Eyes: Present: PERRL ENT: hearing intact, clear oral mucosa - Neck Neck: Present: supple, normal ROM - Respiratory Respiratory effort: normal Respiratory: bilateral: CTA - Cardiovascular Heart Sounds: Present: S1 & S2. Absent: rub, click - Extremities Extremities: pulses symmetrical, No edema Peripheral Pulses: within normal limits - Abdominal General gastrointestinal: Present: soft, non-tender, non-distended, normal bowel sounds Male genitourinary: Present: normal - Integumentary Integumentary: Present: clear, warm, dry - Musculoskeletal Musculoskeletal: gait normal, strength equal bilaterally - Psychiatric Psychiatric: appropriate mood/affect, intact judgment & insight - Neurologic Neurologic: CNII-XII intact, moves all extremities Plan Activity: advance as tolerated Weight Bearing Status: Weight Bear as Tolerated Diet: renal Follow up with: GUILLERMO MALDONADO MD [Primary Care Provider] - 7 Days Prescriptions: Chlorthalidone 50 mg PO QDAY #30 tab glipiZIDE [Glucotrol] 5 mg PO QDAY #30 tab Sitagliptin Phosphate [Januvia] 100 mg PO QDAY #30 tab AtorvaSTATin [Lipitor] 40 mg PO QHS #30 tab Metoprolol [Lopressor TAB] 25 mg PO QDAY #30 tab Metformin HCl [metFORMIN] 1,000 mg PO BID #60 tab Famotidine [Pepcid] 40 mg PO QHS #30 tab-cap FLUoxetine [PROzac] 20 mg PO QDAY #30 cap lisinopriL [Zestril TAB] 40 mg PO QDAY #30 tab
[2021-11-23] MEDS ORDERED: FLUoxetine 20 MG CAP PO SCH (10:00)
[2021-11-23] MEDS ORDERED: METOPROLOL TARTRATE 25 MG TAB PO SCH (10:00)
[2021-11-23 13:24] VITALS: BP 156/86
[2021-11-23] MEDS: FOLIC ACID 1 MG TAB PO SCH (13:43)
[2021-11-23] MEDS: TIMOLOL 0.5% OPHTH SOLN 5 ML OU SCH (13:44)
--- NOTE | 2021-11-23 19:28 | Progress Note ---
Assessment and Plan Acute kidney injury. Renal u/s unremarkable. Hypokalemia Hyponatremia Hypochloremia Hypomagnesemia Hyperglycemia S/p potassium repletion S/p magnesium repletion S/p IVF Renally dose medications Avoid nephrotoxins Renal diet Keep glucose less than 180 mg/dL Discussed risk factors for kidney disease and preventative strategies in detail. Subjective Date of service: 11/23/21 Principal diagnosis: MIRI Interval history: Sitting up in chair. Family at bedside. Objective - Exam Narrative Exam: General: No acute distress HEENT: Oral mucosa moist Neck: Supple, no JVD Chest: Clear to auscultation bilaterally Heart: RRR, S1 and S2, no pericardial rub Abdomen: Soft, nontender, no renal bruit Extremity: No peripheral cyanosis, edema Neurological: Alert, awake, no asterixis Dermatology: No skin rash Psych: No agitation Musculoskeletal: No joint effusion - Vital Signs Vital signs: Vital Signs - 12hr 11/23/21 11/23/21 08:47 14:42 Temperature 97.3 F L Pulse Rate 69 Respiratory 18 Rate Blood Pressure 156/86 O2 Sat by Pulse 99 96 Oximetry - Lab 11/23/21 04:42 11/23/21 04:42 Most recent lab results Calcium 7.4 mg/dL (8.4-10.2) L 11/23/21 04:42 Magnesium 1.30 mg/dL (1.7-2.3) L 11/22/21 04:00 Urine Creatinine 53.9 mg/dL (0.1-20.0) H 11/22/21 05:48 Urine Total Protein 9 mg/dL (5-11.8) 11/22/21 05:48 Medications & Allergies - Medications Allergies/Adverse Reactions: Allergies No Known Allergies Allergy (Verified 11/21/21 11:04) Home Medications: Home Medications Medication Instructions Recorded Confirmed Last Taken Type Latanoprost 0.005% 1 drop OU QHS 11/21/21 11/21/21 Unknown History Timolol 0.5% [Timoptic] 1 drops OU BID 11/21/21 11/21/21 Unknown History AtorvaSTATin [Lipitor] 40 mg PO QHS #30 tab 11/23/21 Unknown Rx Chlorthalidone 50 mg PO QDAY #30 tab 11/23/21 Unknown Rx FLUoxetine [PROzac] 20 mg PO QDAY #30 cap 11/23/21 Unknown Rx Famotidine [Pepcid] 40 mg PO QHS #30 tab-cap 11/23/21 Unknown Rx Metformin HCl [metFORMIN] 1,000 mg PO BID #60 tab 11/23/21 Unknown Rx Metoprolol [Lopressor TAB] 25 mg PO QDAY #30 tab 11/23/21 Unknown Rx Sitagliptin Phosphate [Januvia] 100 mg PO QDAY #30 tab 11/23/21 Unknown Rx glipiZIDE [Glucotrol] 5 mg PO QDAY #30 tab 11/23/21 Unknown Rx lisinopriL [Zestril TAB] 40 mg PO QDAY #30 tab 11/23/21 Unknown Rx
== END 2021-11-23 14:30 | disposition home or self-care (01) | DRG 640 ==
LOC: ED 12:28 → 4A 11-21 02:32
PROVIDERS: ADMIT Internal Medicine Geriatric Medicine; ATTEND Hospitalist
DX: E86.0 Dehydration (principal); N17.0 Acute kidney failure with tubular necrosis; E11.65 Type 2 diabetes mellitus with hyperglycemia; E87.1 Hypo-osmolality and hyponatremia; E87.6 Hypokalemia; E87.8 Other disorders of electrolyte and fluid balance, not elsewhere classified; E83.42 Hypomagnesemia; R19.7 Diarrhea, unspecified; Z79.84 Long term (current) use of oral hypoglycemic drugs
CPT/HCPCS: 36415; 71045; 76770; 80048; 80053; 81001; 82010; 82550; 82570; 82962; 83735; 84156; 85025; 93005; 99285; G0378; Q9967; J1644; J1815; J3475; J3480; J7030